=== PATIENT | male | born 1930 | race Caucasian/White ===

== ENCOUNTER 2016-08-06 13:19 | Emergency (ER) | payer MEDICARE, OTHER ==
[~2016-08-06 13:19] MED LIST: CALCIUM600 MG PO; CARVEDILOL25 MG PO; COUMADIN5 MG PO; EFFEXOR DPS75 MG PO; GLUCOSAMINE CH1 EAC1 PO; LASIX DPS40 MG PO; POTASSIUM CHLO20 ME2 PO; PRESERVISION A1 EACH PO; VITAMIN D31000 UNIT PO; ZAROXOLYN5 MG PO; ZOCOR DPS40 MG PO
--- NOTE | 2016-08-07 08:46 | ER ---
ADMIT: 08/06/2016 RM/LOC: ER [facility] MR#: [id number] [address] [id number] [place] [address] Emergency Room Report SEX: M AGE: 86 : 1930 DATE: 08/06/2016 An 86-year-old gentleman sent from the [place] for a low potassium which was drawn on a routine lab today. He has a potassium of 2.6. The patient himself has no complaints. He has just been over to [facility] earlier in the morning and placed on a monitor for his atrial fibrillation. See T-sheet for history and physical. I did discuss the care with Dr. Dante Cruz who agreed to see him tomorrow in the clinic for repeat potassium. He was given 40 mEq of potassium in the Emergency Department. An EKG here was unchanged from an EKG in March of this year. DIAGNOSIS: Hypokalemia. Mauri Gaines MD/ starla JOB #: [id number] CC: Mauri Gaines MD, Attending Physician Rosanne Jeronimo MD, Family Physician
== END 2016-08-06 16:00 | disposition home or self-care (01) ==
LOC: ER 13:19
DX: E87.6 Hypokalemia (principal); I48.91 Unspecified atrial fibrillation; E78.5 Hyperlipidemia, unspecified; I11.0 Hypertensive heart disease with heart failure; I50.9 Heart failure, unspecified; E11.9 Type 2 diabetes mellitus without complications; Z88.8 Allergy status to other drugs, medicaments and biological substances; Z79.01 Long term (current) use of anticoagulants; Z79.899 Other long term (current) drug therapy